=== PATIENT | male | born 1990 | race Hispanic/Latino ===

== ENCOUNTER 2019-06-18 20:58 | Emergency (ER) | payer OTHER ==
[2019-06-18] MEDS ORDERED: KETOROLAC TROMETHAMINE 60 MG/2 ML VIAL ONE (21:24)
== END 2019-06-18 22:45 ==
LOC: EDH 20:58 → EDBD 20:58 → EDH 22:45
DX: S43.492A Other sprain of left shoulder joint, initial encounter (principal); S76.012A Strain of muscle, fascia and tendon of left hip, initial encounter; S96.911A Strain of unspecified muscle and tendon at ankle and foot level, right foot, initial encounter; S96.912A Strain of unspecified muscle and tendon at ankle and foot level, left foot, initial encounter; Z87.891 Personal history of nicotine dependence; V49.49XA Driver injured in collision with other motor vehicles in traffic accident, initial encounter; Y93.89 Activity, other specified; Y92.89 Other specified places as the place of occurrence of the external cause; Y99.8 Other external cause status
CPT/HCPCS: 71045; 73030; 73521; 73552; 73610 ×2; 96372; 99284; J1885